=== PATIENT | male | born 1975 | race Caucasian/White ===

== ENCOUNTER 2016-06-29 08:33 | Emergency (ER) | payer SELFPAY ==
[~2016-06-29] VITALS: Ht 177.8 cm; Wt 95.5 kg
[~2016-06-29 08:33] MED LIST: DICL75 PO; MMW SSP; NAPR500 PO
[2016-06-29 08:46] VITALS: BP 136/79; PULSE 76; RESP 16; TEMP 97.8; O2SAT 98
[2016-06-29 09:10] VITALS: BP_SYST 140; BP_SYST 142; BP_DIAS 84; PULSE 73; RESP 18; O2SAT 97
--- NOTE | 2016-06-29 09:14 | PD ---
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 He says yesterday he was lifting a ladder out of his truck and his pain got much worse. He feels numb in the left arm and feels like his arm is in a vice. He hasn't been able to sleep all night. He's been taking Motrin and using ice and heat but it's not helping. PFSH Past Medical History Cerebrovascular Accident: No Diabetes: No Diminished Hearing: No Gastrointestinal Disorders: No Hypertension: No Kidney Stones: Yes Neurologic: Yes (EPILEPSY, as child) Myocardial Infarction: No Renal Failure: No Seizures: Yes (EPILEPSY, as child) Ulcer: No Influenza Vaccination: No Past Surgical History Oral Surgery: Yes (IMPACTED WISDOM TEETH) Other Surgery: No Family History Family Myocardial Infarction: Yes (MOTHER) Social History Alcohol Use: Yes (denies) Tobacco Use: Yes (3/4 PPD) Substance Use: No Allergies-Medications (Allergen,Severity, Reaction): Coded Allergies: No Known Allergies (Verified , 06/29/16) Reported Meds & Prescriptions Reported Meds & Active Scripts Active No Active Prescriptions or Reported Medications Review of Systems Except as stated in HPI: all other systems reviewed are Neg Physical Exam Narrative GENERAL: Uncomfortable appearing SKIN: Diaphoretic HEAD: Atraumatic. Normocephalic. EYES: Pupils equal and round. No injection or drainage. ENT: Moist mucous membranes NECK: Trachea midline. CARDIOVASCULAR: Regular rate and rhythm. No murmur appreciated. 2+ left radial pulse in the left arm with normal capillary refill. RESPIRATORY: Clear to auscultation. Breath sounds equal bilaterally. GASTROINTESTINAL: Abdomen soft, non-tender, nondistended. MUSCULOSKELETAL: No obvious deformities. NEUROLOGICAL: Awake and alert. No obvious cranial nerve deficits. Sensation and motor grossly intact in the median, ulnar and radial distributions of the left arm. PSYCHIATRIC: Appropriate mood and affect; insight and judgment normal. Data Data Last Documented VS Vital Signs Date Time Temp Pulse Resp B/P Pulse Ox O2 Delivery O2 Flow Rate FiO2 06/29/16 10:25 61 16 111/70 96 Room Air 06/29/16 08:46 97.8 Orders Electrocardiogram (06/29/16 09:02) Complete Blood Count With Diff (06/29/16 09:02) Comprehensive Metabolic Panel (06/29/16 09:02) Troponin I (06/29/16 09:02) Ecg Monitoring (06/29/16 09:02) Bilateral Bp Monitoring (06/29/16 09:02) Iv Access Insert/Monitor (06/29/16 09:02) Oximetry (06/29/16 09:02) Oxygen Administration (06/29/16 09:02) Sodium Chloride 0.9% Flush (Ns Flush) (06/29/16 09:15) Ct Cerv Spine W/O Contrast (06/29/16 ) Ketorolac Inj (Toradol Inj) (06/29/16 09:15) Orphenadrine Inj (Norflex Inj) (06/29/16 09:15) Diazepam (Valium) (06/29/16 09:15) Shoulder, Complete (>2vws) (06/29/16 ) Labs Laboratory Tests Test 06/29/16 09:15 White Blood Count 6.9 TH/MM3 Red Blood Count 5.44 MIL/MM3 Hemoglobin 16.1 GM/DL Hematocrit 49.0 % Mean Corpuscular Volume 90.0 FL Mean Corpuscular Hemoglobin 29.7 PG Mean Corpuscular Hemoglobin 32.9 % Concent Red Cell Distribution Width 13.5 % Platelet Count 271 TH/MM3 Mean Platelet Volume 8.3 FL Neutrophils (%) (Auto) 61.6 % Lymphocytes (%) (Auto) 22.4 % Monocytes (%) (Auto) 10.6 % Eosinophils (%) (Auto) 3.8 % Basophils (%) (Auto) 1.6 % Neutrophils # (Auto) 4.3 TH/MM3 Lymphocytes # (Auto) 1.5 TH/MM3 Monocytes # (Auto) 0.7 TH/MM3 Eosinophils # (Auto) 0.3 TH/MM3 Basophils # (Auto) 0.1 TH/MM3 CBC Comment DIFF FINAL Differential Comment Sodium Level 142 MEQ/L Potassium Level 4.2 MEQ/L Chloride Level 107 MEQ/L Carbon Dioxide Level 28.1 MEQ/L Anion Gap 7 MEQ/L Blood Urea Nitrogen 20 MG/DL Creatinine 0.95 MG/DL Estimat Glomerular Filtration 87 ML/MIN Rate Random Glucose 103 MG/DL Calcium Level 9.2 MG/DL Total Bilirubin 0.6 MG/DL Aspartate Amino Transf 17 U/L (AST/SGOT) Alanine Aminotransferase 30 U/L (ALT/SGPT) Alkaline Phosphatase 128 U/L Troponin I LESS THAN 0.02 NG/ML Total Protein 7.3 GM/DL Albumin 4.0 GM/DL MDM Medical Decision Making Medical Screen Exam Complete: Yes Emergency Medical Condition: Yes Interpretation(s) Afebrile, no tachycardia, normotensive No leukocytosis Electrolytes are reassuring Troponin is normal Last 24 hours Impressions Cervical Spine CT 06/29/16 0000 Signed Impressions: Service Date/Time: , June 29, 2016 09:25 - CONCLUSION: Degenerative disc disease at C6-C7. The spinal canal is not well-visualized at this level due to artifact from the patient's shoulders. Mild bilateral neural foraminal narrowing is present at this level. MRI may be helpful for better visualization of the canal at this level. Lobito Moore MD Differential Diagnosis Cervical radiculopathy, myocardial infarction, rotator cuff strain Narrative Course This is a 41-year-old male who presents to the emergency department with severe pain in his neck, shoulder and left arm associated with some numbness and tingling. He has a normal motor and sensory exam with a strong pulse in the left arm. He was diaphoretic upon arrival. He was placed on a monitor and an IV was established. EKG was reassuring and troponin was normal. CT of the cervical spine demonstrates degenerative disc disease at C6-C7 which may be contributing to his symptoms. I spoke to the family regarding the risks versus benefits of surgery versus conservative management if this is in fact related to degenerative disc disease in the neck. Patient will be discharged with anti- inflammatories, steroids and muscle relaxer and is given a referral to neurosurgery. I don't think there is a need for emergent MRI at this time but he does require further outpatient imaging. Diagnosis Primary Impression: Degenerative disc disease, cervical Referrals: Benji Song MD Patient Instructions: General Instructions Additional Instructions: If you develop weakness, difficulty moving your arm or difficulty walking return to the emergency department. Follow-up as soon as possible with a neurosurgeon. Med/Other Pt SpecificInfo: Prescription(s) given Scripts Ranitidine 150 Mg [id number] Mg PO DAILY #30 TAB Ref 0 Prov:Connie Adams MD 06/29/16 Methylprednisolone Dosepak (Medrol Dosepak)4 Mg Dspk4 Mg PO DIRECTED #1 DSPK Ref 0 Per Pharmacist direction Prov:Connie Adams MD 06/29/16 Naproxen 500 Mg Rvh980 Mg PO BID #20 TAB Ref 0 Prov:Connie Adams MD 06/29/16 Cyclobenzaprine (Flexeril)10 Mg Tab10 Mg PO TID PRN (SPASM) #10 TAB Ref 0 Prov:Connie Adams MD 06/29/16 Disposition: 01 DISCHARGE HOME Condition: Stable Connie Adams MD Jun 29, 2016 09:14
[2016-06-29] MEDS ORDERED: KETOROLAC TROMETHAMINE 30 MG/ML (IVP) VIAL IV PUSH ONE (09:15)
[2016-06-29] MEDS ORDERED: SODIUM CHLORIDE 0.9% FLUSH 10 ML FLUSH IVF PRN (09:15)
[2016-06-29] MEDS ORDERED: ORPHENADRINE INJ 60 MG/2 ML AMP IM ONE (09:15)
[2016-06-29] MEDS ORDERED: DIAZEPAM 5 MG TAB PO ONE (09:15)
[2016-06-29 09:25] LABS: AUTOMATED NEUTROPHIL # 4.3 TH/MM3 (1.8-7.7); BASOPHIL # 0.1 TH/MM3 (0-0.2); BASOPHIL % 1.6 % (0.0-2.0); EOSINOPHIL # 0.3 TH/MM3 (0-0.4); EOSINOPHIL % 3.8 % (0.0-4.0); HEMO FLAGS DIFF FINAL; LYMPH % 22.4 % (9.0-44.0); LYMPHOCYTE # 1.5 TH/MM3 (1.0-4.8); MEAN CORPUSCULAR HEMOGLOBIN 29.7 PG (27.0-34.0); MEAN CORPUSCULAR HGB CONC 32.9 % (32.0-36.0); MONO % 10.6 % (0.0-8.0); NEUT % 61.6 % (16.0-70.0); PLATELET COUNT 271 TH/MM3 (150-450); RED BLOOD COUNT 5.44 MIL/MM3 (4.50-5.90); RED CELL DISTRIBUTION WIDTH 13.5 % (11.6-17.2); WHITE BLOOD COUNT 6.9 TH/MM3 (4.0-11.0)
[2016-06-29 09:27] VITALS: RESP 18; O2SAT 97
[2016-06-29 09:56] LABS: ANION GAP 7 MEQ/L (5-15); BICARBONATE 28.1 MEQ/L (21.0-32.0); BLOOD UREA NITROGEN 20 MG/DL (7-18); CHLORIDE 107 MEQ/L (98-107); POTASSIUM 4.2 MEQ/L (3.5-5.1); SODIUM (NA) 142 MEQ/L (136-145)
[2016-06-29 09:59] LABS: ALT (GPT) 30 U/L (12-78); GLOMERULAR FILTRATION RATE 87 ML/MIN (>89)
[2016-06-29 10:00] LABS: TOTAL BILIRUBIN ADULT 0.6 MG/DL (0.2-1.0)
--- NOTE | 2016-06-29 10:01 | RADHPO ---
EXAM DATE/TIME: 06/29/2016 09:25 [facility] COMPARISON: No previous studies available for comparison. INDICATIONS : Left neck and shoulder pain with radiculopathy down left arm. RADIATION DOSE: 26.58 CTDIvol (mGy) MEDICAL HISTORY : Seizures. SURGICAL HISTORY : None. ENCOUNTER: Initial ACUITY: 1 month PAIN SCALE: 10/10 LOCATION: Left neck TECHNIQUE: Volumetric scanning of the cervical spine was performed. Multiplanar reconstructions in the sagittal, coronal and oblique axial planes were performed. Using automated exposure control and adjustment o f the mA and/or kV according to patient size, radiation dose was kept as low as reasonably achievable to obtain optimal diagnostic quality images. FINDINGS: VERTEBRAE: Normal vertebral body height. No fracture is visualized. ALIGNMENT: There is no anterolisthesis retrolisthesis. The craniocervical junction and C1-C2 level demonstrate no acute finding. C2-C3: No significant disc herniation, canal stenosis, or neural foraminal stenosis is present. C3-C4: There is a mild diffuse disc bulge with minimal right uncovertebral osteophyte. However, no significa nt canal stenosis or neural foraminal narrowing is visualized. C4-C5: Minimal diffuse disc bulge. No canal stenosis or neural foraminal stenosis is visualized. C5-C6: No disc herniation, canal stenosis, or neural foraminal stenosis is present. C6-C7: There is decreased disc height with small endplate osteophytes anteriorly and posterior disc osteophy te complex. The canal is not well visualized due to artifact related to patient's shoulders and techn ique. There is mild bilateral neural foraminal narrowing. C7-T1: No disc herniation, canal stenosis, or neural foraminal narrowing is visualized. Canal is not well-vi sualized. The visualized paraspinous structures demonstrate no acute finding. CONCLUSION: Degenerative disc disease at C6-C7. The spinal canal is not well-visualized at this level due to migel fact from the patient's shoulders. Mild bilateral neural foraminal narrowing is present at this level . MRI may be helpful for better visualization of the canal at this level. Lobito Moore MD on June 29, 2016 at 9:49 Board Certified Radiologist. This report was verified electronically.
[2016-06-29 10:02] LABS: ALKALINE PHOSPHATASE 128 U/L (45-117)
[2016-06-29 10:05] LABS: AST (GOT) 17 U/L (15-37)
[2016-06-29 10:25] VITALS: BP 111/70; PULSE 61; RESP 16; O2SAT 96
[2016-06-29] MEDS ORDERED: MEDR4PAK PO (11:07)
[2016-06-29] MEDS ORDERED: NAPR500T PO (11:07)
[2016-06-29] MEDS ORDERED: CYCL1TAB29 PO (11:07)
[2016-06-29] MEDS ORDERED: RANI150T PO (11:07)
--- NOTE | 2016-06-29 11:41 | RADHPO ---
EXAM DATE/TIME: 06/29/2016 09:26 [facility] COMPARISON: No previous studies available for comparison. INDICATIONS : Left arm injury approximately 1 month ago, but now has pain & numbness after lifting a ladder out of truck yesterday. MEDICAL HISTORY : Renal calculi. Left wrist fracture. Epilepsy as a child. SURGICAL HISTORY : Right thumb. ENCOUNTER: Initial ACUITY: 1 day PAIN SCORE: 10/10 LOCATION: Left shoulder FINDINGS: Multiple view examination of the left shoulder demonstrates no evidence of fracture or dislocation. The glenohumeral and acromioclavicular joints are maintained. There is normal range of motion betwee n internal and external rotation. Bony mineralization is normal. CONCLUSION: Unremarkable exam. Brandon Chandra MD on June 29, 2016 at 11:39 Board Certified Radiologist. This report was verified electronically.
--- NOTE | 2016-06-29 18:04 | EKG ---
Date Performed: 06/29/2016 Time Performed: 09:05:22 PTAGE: 41 years EKG: Sinus rhythm Normal ECG Compared to prior study, nonspecific inferior T-wave changes have resolved. PREVIOUS TRACING : 11/14/2012 21.08 DOCTOR: Moshe Soto Interpretating Date/Time 06/29/2016 18:03:11
== END 2016-06-29 11:31 | disposition home or self-care (01) ==
LOC: PHEFT 08:33
DX: M50.30 Other cervical disc degeneration, unspecified cervical region (principal); M79.622 Pain in left upper arm; F17.210 Nicotine dependence, cigarettes, uncomplicated; X50.0XXA Overexertion from strenuous movement or load, initial encounter; Y93.9 Activity, unspecified; Y99.0 Civilian activity done for income or pay; Y92.9 Unspecified place or not applicable
CPT/HCPCS: 72125; 73030; 80053; 84484; 85025; 93005; 96372; 96374; 99284; J1885; J2360